=== PATIENT | male | born 1980 | race Caucasian/White ===

== ENCOUNTER 2016-12-11 11:34 | Inpatient (IN) | payer OTHER ==
--- NOTE | ~2016-12-11 | PN ---
Unit #: [id number] #: [id number] Patient: MELA MICHEL [id number] [facility] [address] [place] [address] [id number] MR#: [id number] NAME: MELA MICHEL. ROOM: [facility]5 Age: 36 Sex: M Admission Date: 12/11/2016 : 1980 Attending Physician: Jackson Leonard M.D. Admitting Physician: Jackson Leonard M.D. Primary Care Physician: Generic Doctor Not In System [facility] PROGRESS NOTES DATE 12/10/2016 DISCUSSION Mr. Michel is a 36-year-old, white male who was seen today and chart was reviewed and case was discussed with the staff who reports the patient has been exhibiting very bizarre behavior with acute psychosis, paranoia and delusional behavior and he had to be moved to a different group as he has been making other female patients in the group very uncomfortable with speech and behavior and his therapist was also getting uncomfortable and initially we were going to discharge him but then it was decided he will be moved to a different floor. He also has been delusional about all the nursing staff in the program after him and he has been going out and telling people at the front line leader that all nurses want him. He also has been talking in the groups about rape and trauma and inflicting pain and injury and as such has been other patients uncomfortable and we will recommend maintaining him on his medication and lithium has been maintained. I encouraged him to consider alternative medication options as well. Dictated by... Anai Arambula/jay TD: 12/12/2016 00:17 JOB #: [id number] [facility] PROGRESS NOTES Page 1 of 1 X Jackson Leonard MD PROGRESS NOTE
--- NOTE | ~2016-12-11 | DS ---
Unit #: [id number] #: [id number] Patient: MELA FONTAINE [id number] [facility] [address] [place] [address] [id number] I MR#: [id number] NAME: MELA FONTAINE. ROOM: [facility] Age: 36 Sex: M Admission Date: 12/11/2016 : 1980 Discharge Date: 12/15/2016 Attending Physician: Jackson Leonard M.D. DISCHARGE SUMMARY REASON FOR ADMISSION Depression without any plan. DIAGNOSTIC STUDIES LABORATORY RESULTS: Unremarkable. HOSPITAL COURSE The patient was admitted to inpatient unit on 12/11/2016 and discharged on 12/15/2016. The patient was treated with psychoeducation, psychotherapy, structured milieu, medication management. The patient was compliant with the care and responded well. Able to contract for safety. Subsequently, the patient was discharged with a plan to follow up in outpatient program and follow up in [facility] level of care. DISCHARGE MEDICATIONS [place] carbonate 300 mg in the morning, noon, and 450 mg at bedtime for mood stabilization; Klonopin 0.5 mg once daily for anxiety; Risperdal 2 mg daily for mood stabilization. The patient at this time denied any suicidal or homicidal ideation or any psychotic symptom. The patient was not holdable at this time. DISCHARGE DIAGNOSES Psychiatric: Bipolar mood disorder, most recent episode depressed, recurrent, moderate, with psychotic feature, F31.89. Secondary diagnosis: Deferred. Medical diagnosis: History of brain injury. Stressors: Psychosocial stressor. DISCHARGE INSTRUCTIONS The patient to follow up in outpatient program as per social services designee. CONDITION ON DISCHARGE The patient was pleasant and cooperative. Denied any psychotic symptom or any suicidal ideation. PROGNOSIS Guarded. DIET AND ACTIVITY As tolerated. Unit #: [id number] #: [id number] Patient: MELA FONTAINE Dictated by... Anai Mcfarland/elliott TD: 12/15/2016 23:45 JOB #: [id number] DISCHARGE SUMMARY Page 1 of 1 X Dwaine Rios MD X DISCHARGE SUMMARY
--- NOTE | ~2016-12-11 | PN ---
Unit #: [id number] #: [id number] Patient: MELA MICHEL [id number] [facility] [address] [place] [address] [id number] I MR#: [id number] NAME: MELA MICHEL. ROOM: [facility]5 Age: 36 Sex: M Admission Date: 12/11/2016 : 1980 Attending Physician: Jackson Leonard M.D. Admitting Physician: Jackson Leonard M.D. Primary Care Physician: Nelson Doctor Not In System [facility] PROGRESS NOTES DATE 12/13/2016 DISCUSSION Mr. Michel is a 36-year-old, white male with mood disorder , who was seen today and the chart was reviewed. His case was discussed with the staff. He remains anxious, withdrawn, and rather seclusive to himself. Meanwhile, he has been cooperative with treatment recommendation and has been taking medications and has been tolerating them fairly well with no reported side effects. MENTAL STATUS EXAMINATION Young white male who was casually dressed with a fair personal hygiene and appears to be in no acute distress or discomfort. He was awake and alert on interaction with intact orientation. His mood was anxious with a congruent affect. Speech is slow and goal directed. He denies any suicidal or homicidal ideation and also denies any auditory or visual hallucinations. His insight and judgment remain slightly impaired. TREATMENT PLAN 1. Will continue on his current medications and treatment protocol. Will monitor his response to medications and make further adjustments as needed. 2. We will continue to follow up. Dictated by... Jackson Leonard M.D. IAA/hardik TD: 12/16/2016 08:38 JOB #: [id number] Unit #: [id number] #: [id number] Patient: MELA MICHEL [facility] PROGRESS NOTES Page 1 of 1 X Jackson Leonard MD PROGRESS NOTE
--- NOTE | ~2016-12-11 | PN ---
Unit #: [id number] #: [id number] Patient: MELA MICHEL [id number] [facility] [address] [place] [address] [id number] I MR#: [id number] NAME: MELA MICHEL. ROOM: [facility]5 Age: 36 Sex: M Admission Date: 12/11/2016 : 1980 Attending Physician: Jackson Leonard M.D. Admitting Physician: Jackson Leonard M.D. Primary Care Physician: Generic Doctor Not In System [facility] PROGRESS NOTES DATE 12/14/2016 DISCUSSION Mr. Michel is a 36-year-old white male with mood disorder who was seen today and chart was reviewed and case was discussed with the staff. He remains anxious, withdrawn, disorganized with irritability and impulsivity and flight of ideas and difficulty showing stability in his mood and daily functioning. He has been taking the medications and tolerating them fairly well. MENTAL STATUS EXAMINATION Young white male who was casually dressed with fair personal hygiene and appears to be in no acute distress or discomfort. He was awake and alert on interaction with intact orientation. His mood was anxious with congruent affect. He denies any suicidal or homicidal ideations. His insight and judgement remains slightly impaired. TREATMENT PLAN 1. We will continue on his current medications and treatment protocol. Will monitor his response to the medications and make further adjustments as needed. 2. Will continue to follow up. Dictated by... Jackson Leonard M.D. TODD/basilio TD: 12/17/2016 08:46 JOB #: [id number] Unit #: [id number] #: [id number] Patient: MELA MICHELAIDAN PROGRESS NOTES Page 1 of 1 X Jackson Leonard MD PROGRESS NOTE
--- NOTE | ~2016-12-11 | PA ---
Unit #: [id number] #: [id number] Patient: MELA MICHEL [id number] [facility] [address] [place] [address] [id number] I MR#: [id number] NAME: MELA MICHEL. ROOM: [facility]5 Age: 36 Sex: M Admission Date: 12/11/2016 : 1980 Date of Assessment: 12/11/2016 Attending Physician: Jackson Leonard M.D. Admitting Physician: Jackson Leonard M.D. Primary Care Physician: Generic Doctor Not In System PSYCHIATRIC ASSESSMENT DATE OF SERVICE 12/11/2016. IDENTIFYING DATA Mr. Michel is a 36-year-old, single, white male, who is a resident of [place], [place] and was self-referred to the hospital on a voluntary basis. CHIEF COMPLAINT "I'm having thoughts of doing something bad, suicidal." HISTORY OF PRESENT ILLNESS Mr. Michel is a 36-year-old white male with a history of bipolar disorder, who has been active under our care in the partial hospitalization program and was stepped up to the inpatient unit due to the patient having persistent negative thoughts and has been feeling in the outpatient treatment program and has been voicing suicidal thoughts and stated "if you know anything about the mixed state of bipolar, which I hope you know, that is when I'm most vulnerable for suicide." The patient was seen to be very grandiose, paranoid, and intentionally intimate thought processes and making you should know from my time being here, I'm quite capable of hurting myself and others." He reports that he has and stated "I would be safer inpatient." As such, recommendation for inpatient level of care for safety and stabilization was made. The patient was stepped up to the inpatient unit. SUBSTANCE ABUSE HISTORY The patient denies any alcohol or drug abuse. PAST PSYCHIATRIC HISTORY The patient has had a history of inpatient and outpatient psychiatric treatment and has been diagnosed and treated for bipolar disorder. Review of the medical records indicate that currently he is on lithium, but does not appear to be showing a therapeutic response to medication. PAST MEDICAL HISTORY No acute or chronic medical illnesses. ALLERGIES Penicillin. PERSONAL AND SOCIAL HISTORY A 36-year-old white male, who reports that he is single, unemployed, and Unit #: [id number] #: [id number] Patient: MELA MICHEL lives at home by himself and has poor social support system. MENTAL STATUS EXAMINATION Young white male, who was casually dressed with fair personal hygiene, appears to be in no acute distress or discomfort. He was awake and alert on interaction with intact orientation to time, place, and person. His mood was anxious and depressed with a congruent affect. His speech was slow and restricted in content. His thought processes were disorganized with some looseness of associations and flight of ideas and paranoid ideations and suicidal ideations. His insight and judgment remain significantly impaired. DIAGNOSTIC IMPRESSION Psychiatric: Bipolar disorder, most recent episode depressed, recurrent, moderate, with psychosis. Medical: None. Stressors: Moderate psychosocial stressors. TREATMENT PLAN 1. The patient has presented with a history of mood disorder and has been decompensating and will need inpatient hospitalization for safety and stabilization. We will start him back on his home medications. We will adjust the medications and monitor response. 2. Supportive therapy was provided to the patient. 3. Safe, structured, and nourishing environment will be provided. ESTIMATED LENGTH OF STAY 4 to 5 days. ABILITY TO HELP SELF Limited. WILLINGNESS TO HELP SELF The patient appears to be willing to help self. STRENGTHS 1. Communicative. 2. Cooperative. PROBLEMS 1. Chronic dysphoric symptoms. 2. Poor social support system. DISCHARGE CRITERIA This will be contingent upon the patient's ability to show resolution of his depression and psychosis and his ability to stay safe to himself and others, particularly after discharge from the hospital. Dictated by... Anai Arambula/elliott TD: 12/12/2016 08:39 JOB #: [id number] Unit #: [id number] #: [id number] Patient: MELA MICHEL PSYCHIATRIC ASSESSMENT Page 1 of 1 X Jackson Leonard MD X PSYCHIATRIC ASSESSMENT
--- NOTE | ~2016-12-11 | HP ---
Unit #: [id number] #: [id number] Patient: MIHIR FONTAINE [id number] [place] [address] [id number] MR#: [id number] NAME: MIHIR FONTAINE. ROOM: [facility]5 Age: 36 Sex: M Admission Date: 12/11/2016 : 1980 Attending Physician: Jackson Leonard M.D. Admitting Physician: Jackson Leonard M.D. Primary Care Physician: Generic Doctor Not In System HISTORY AND PHYSICAL HISTORY OF PRESENT ILLNESS Mihir is a 36 year old admitted to [address] [place] [address] with depression, homicidal and suicidal ideation. PAST MEDICAL HISTORY Nothing significant. PAST SURGICAL HISTORY T&A ALLERGIES Penicillin, abilify. SOCIAL HISTORY He denies cigarettes, alcohol and illicit drug use. FAMILY HISTORY Medically noncontributory. REVIEW OF SYSTEMS CONSTITUTIONAL: No fever or chills. HEENT: Denies any sore throat, ear pain or runny nose. CARDIOVASCULAR: Denies chest pain, irregular heart rhythm or palpitations. CHEST: Denies shortness of breath or cough. No hemoptysis. GASTROINTESTINAL: Denies nausea, vomiting, diarrhea or chronic constipation. ENDOCRINE: Denies history of increased thirst or urination. No recent significant weight loss or gain. GENITOURINARY: Denies dysuria, frequency, or hematuria. SKIN: Denies any rashes. HEMATOLOGIC: Denies history of increased bleeding or bruising. MUSCULOSKELETAL: Denies any hot, swollen joints. No generalized muscle pain. NEUROLOGIC: Denies problems with vision or speech. No frequent, severe headaches. No numbness, tingling or weakness in any extremities. Denies loss of bladder or bowel control. CURRENT MEDICATIONS 1. [place] 300 mg q.a.m. 450 mg q.h.s. 2. Neurontin 300 mg t.i.d. 3. Milk of Magnesia p.r.n. 4. Maalox p.r.n. Unit #: [id number] #: [id number] Patient: MIHIR FONTAINE 5. Tylenol p.r.n. 6. Klonopin 0.5 mg q day PHYSICAL EXAMINATION GENERAL: Alert, well-nourished, in no apparent distress. VITAL SIGNS: Blood pressure 136/92, heart rate 72, respirations 16, temperature 98.6. WEIGHT: 210 pounds. HEIGHT: 6'0". SKIN: Warm and dry without rash or lesion. HEENT: Normocephalic. TMs not viewed. Oral and nasal passages clear. Conjunctivae clear. Pupils equal, round and reactive to light and accommodation. Extraocular movements intact. NECK: Supple without lymphadenopathy or thyromegaly. HEART: Regular rate and rhythm without murmur. LUNGS: Clear. ABDOMEN: Soft, nontender. : Not done. EXTREMITIES: No evidence of cyanosis, clubbing or edema. Moves all extremities without focal deficit. NEUROLOGICAL: Grossly within normal limits. Cranial Nerves: II: Visual beyer are intact. III, IV AND : Extraocular movements are intact. Pupils are equal, round and reactive to light. V: Facial sensation is grossly normal. VII: Facial movements and expression are normal. VIII: Auditory acuity grossly intact. IX, X: Uvula is midline. Phonation is normal. XI: Patient shrugs shoulders and turns head normally. XII: Tongue protrudes in the midline. Sensory and Motor Function: Sensory and motor sensation is grossly normal. Motor: moves all extremities well. Coordination: Gait is normal. Deep Tendon Reflexes: Intact. IMPRESSION Psychiatric admission RECOMMENDATIONS PSYCHIATRIC: Per psychiatrist. MEDICAL: I see no contraindications to participating in facility's activities. MEDICAL PROGNOSIS Good. MEDICAL CONDITION Stable. Dictated by... Elodia Davis P.A.-C. for Anai Chen/jay TD: 12/11/2016 21:28 Unit #: [id number] #: [id number] Patient: MIHIR FONTAINE JOB #: [id number] HISTORY AND PHYSICAL Page 1 of 1 X Elodia Davis HISTORY AND PHYSICAL
--- NOTE | ~2016-12-11 | PN ---
Unit #: [id number] #: [id number] Patient: MELA MICHEL [id number] [facility] [address] [place] [address] [id number] MR#: [id number] NAME: MELA MICHEL. ROOM: [facility] Age: 36 Sex: M Admission Date: 12/11/2016 : 1980 Attending Physician: Jackson Leonard M.D. Admitting Physician: Jackson Leonard M.D. Primary Care Physician: Nelson Doctor Not In System [facility] PROGRESS NOTES DATE December 12, 2016 DISCUSSION Mr. Michel is a 36-year-old, white male with mood disorder who was seen today and chart was reviewed. His case was discussed with the staff. He was noticed to be anxious, withdrawn, and seclusive to himself with a blunted affect, minimal interaction, and fair personal hygiene and has been reporting feelings of hopeless and helplessness. Also has been significantly paranoid, delusional behavior and talks to me about his father trying to have sex with his girlfriend and he is not (1)____ that or not, but that has been really making him angry in that his father has known loss of contact order against him and, therefore, he cannot even get close to his father and has been voicing thoughts of wanting to hurt himself. MENTAL STATUS EXAMINATION Young white male who was casually dressed with a fair personal hygiene and appears to be in no acute distress or discomfort. He was awake and alert on interaction with intact orientation. His mood was anxious and depressed with a congruent affect. He reports having suicidal ideation, but denies any homicidal ideation. His insight and judgement remain slightly impaired. TREATMENT PLAN 1. Will continue on his current medications and treatment protocol. Will monitor his response to medications and make further adjustments as needed. Will also continue adding Abilify to his lithium and will consider him to be a candidate for long-acting injectable antipsychotic due to a history of poor compliance with medications. 2. We will continue to follow up. Dictated by... Anai Arambula/fabiano TD: 12/14/2016 08:21 JOB #: [id number] Unit #: [id number] #: [id number] Patient: MELA MICHEL PROGRESS NOTES Page 1 of 1 X Jackson Leonard MD X PROGRESS NOTE
[2016-12-12 12:31] LABS: BASOPHIL# 0.1 X10e3 (0-0.3); BASOPHIL% 0.7 % (0-2.5); EOSINOPHIL# 0.4 X10e3 (0-0.7); EOSINOPHIL% 5.5 % (0.0-7.0); HEMATOCRIT 41.8 % (38.0-50.0); HEMOGLOBIN 13.9 gm/dL (13.0-16.0); LYMPHOCYTE# 2.4 X10e3 (1.0-3.5); LYMPHOCYTE% 30.8 % (17.0-45.0); MEAN CELL VOLUME 84.6 FL (83-96); MEAN CORPUSCULAR HEMOGLOBIN 28.2 PG (28-34); MEAN CORPUSCULAR HGB CONC 33.3 g/dL (30-36); MEAN PLATELET VOLUME 8.6 FL (6.5-11.5); MONOCYTE# 0.3 X10e3 (0-1.0); MONOCYTE% 4.2 % (3.0-12.0); NEUTROPHIL# 4.5 X10e3 (1.5-7.1); NEUTROPHIL% 58.8 % (40-75); PLATELET COUNT 295 X10e3 (140-420); RED BLOOD COUNT 4.94 X10e (3.90-5.60); RED CELL DISTRIBUTION WIDTH 13.8 % (11.0-15.5); WHITE BLOOD COUNT 7.6 X10e3 (4.0-10.5)
[2016-12-12 12:37] LABS: DIFF IND NO
[2016-12-12 12:37] LABS: URINE APPEARANCE CLEAR; URINE BILIRUBIN NEG (NEG); URINE BLOOD NEG (NEG); URINE COLOR YELLOW; URINE GLUCOSE NEG (NEG); URINE KETONE NEG (NEG); URINE LEUKOCYTE ESTERASE NEG (NEG); URINE NITRATE NEG (NEG); URINE PROTEIN NEG (NEG); URINE SPECIFIC GRAVITY 1.013 (1.003-1.035); URINE UROBILINOGEN 0.2 MG/DL (NEG)
[2016-12-12 13:01] LABS: ALBUMIN SERUM 4.5 g/dL (3.5-5.0); BILIRUBIN,TOTAL 0.7 mg/dL (0.2-2.0); CALCIUM SERUM 9.6 mg/dL (8.4-10.2); GLOM FILT RATE Estimated 95.7 mL/min (>60); POTASSIUM 4.5 mmol/L (3.5-5.1); PROTEIN TOTAL SERUM 7.3 g/dL (6.0-8.3)
[2016-12-12 13:22] LABS: AMPHETAMINE NEG (NEG); BARBITURATES NEG (NEG); BENZODIAZEPINES NEG (NEG); COCAINE NEG (NEG); MARIJUANA NEG (NEG); OPIATES NEG (NEG); TRICYCLIC ANTIDEPRESSANTS NEG (NEG); U METHADONE NEG (NEG)
== END 2016-12-15 14:20 | disposition home or self-care (01) | DRG 885 ==
LOC: P2L 11:34
PROVIDERS: Psychiatry & Neurology Psychiatry
DX: F31.32 Bipolar disorder, current episode depressed, moderate (principal); R45.851 Suicidal ideations; R45.850 Homicidal ideations; F29 Unspecified psychosis not due to a substance or known physiological condition; Z88.0 Allergy status to penicillin; Z88.8 Allergy status to other drugs, medicaments and biological substances
CPT/HCPCS: 80053; 80307; 81003; 85025